=== PATIENT | male | born 1960 | race Hispanic/Latino ===

== ENCOUNTER 2018-11-08 10:11 | Observation (INO) | payer OTHER ==
[2018-11-08 10:13] VITALS: BMI 26.9
[2018-11-08 10:28] LABS: BASO # 0.1 K/uL (0.0-0.2); BASO % 2.1 % (0.0-2.0); EOS # 0.2 K/uL (0.0-0.7); HEMOGLOBIN 14.4 g/dL (12.0-18.0); LYMPH # 1.6 K/uL (1.0-4.3); LYMPH % 26.2 % (20.0-40.0); MEAN CELL VOLUME 94.8 fL (80.0-94.0); MEAN CORPUSCULAR HEMOGLOBIN 32.7 pg (27.0-31.0); MEAN CORPUSCULAR HGB CONC 34.5 g/dL (33.0-37.0); MEAN PLATELET VOLUME 7.9 fL (7.2-11.7); MONO # 0.6 K/uL (0.0-0.8); MONO % 9.7 % (0.0-10.0); NEUT # 3.5 K/uL (1.8-7.0); NRBC % 0.1 % (0.0-2.0); RBC 4.4 Mil/uL (4.40-5.90); RED CELL DISTRIBUTION WIDTH 13.8 % (11.5-14.5)
--- NOTE | 2018-11-08 10:29 | CT ---
Date of service: 11/08/2018 PROCEDURE: CT HEAD WITHOUT CONTRAST. HISTORY: Code Stroke COMPARISON: None available. TECHNIQUE: Axial computed tomography images were obtained through the head/brain without intravenous contrast. Radiation dose: Total exam DLP = 1259.76 mGy-cm. This CT exam was performed using one or more of the following dose reduction techniques: Automated exposure control, adjustment of the mA and/or kV according to patient size, and/or use of iterative reconstruction technique. FINDINGS: HEMORRHAGE: No intracranial hemorrhage. BRAIN: No mass effect or edema. No atrophy or chronic microvascular ischemic changes. VENTRICLES: Unremarkable. No hydrocephalus. CALVARIUM: Unremarkable. PARANASAL SINUSES: Unremarkable as visualized. No significant inflammatory changes. MASTOID AIR CELLS: Unremarkable as visualized. No inflammatory changes. OTHER FINDINGS: None. IMPRESSION: Normal CT of the Head. No intracranial hemorrhage. No evidence of acute infarct.
--- NOTE | 2018-11-08 10:38 | C.PDOC ---
History Of Present Illness 58 y/o M c PMHx thyroid disease p/w slurred speech, facial droop, unsteady gait, slowed speech that began at 9:50am while patient was walking with . This is the last time well. states patient was dragging one side of body and face appears asymmetrical with slurred speech. Upon EMS arrival, facial droop still present mildly. Patient does not know why he is in ED and states he feels well. Time Seen by Provider: 11/08/18 10:22 Chief Complaint (Nursing): Weakness/Neurological Deficit History Per: Patient, EMS History/Exam Limitations: no limitations Onset/Duration Of Symptoms: Mins Current Symptoms Are (Timing): Still Present Recent travel outside of the [place]: No Past Medical History Vital Signs: Last Vital Signs Temp 97.7 F 11/08/18 10:13 Pulse 69 11/08/18 10:13 Resp 20 11/08/18 10:13 BP 119/75 11/08/18 10:13 Pulse Ox 97 11/08/18 10:13 - Medical History PMH: Hypothyroidism Family History: States: No Known Family Hx - Social History Hx Alcohol Use: Yes Hx Substance Use: No - Immunization History Hx Tetanus Toxoid Vaccination: Yes Hx Influenza Vaccination: Yes Hx Pneumococcal Vaccination: No Physical Exam - Physical Exam Additional Physical Exam Comments: gen nad head nc/at eyes perrl ent mmm neck supple chest no tenderness cv reg rate lungs cta b/l abd soft back no cva tenderness skin no rash extremities no tenderness neuro see [facility] ED Course And Treatment - Laboratory Results Result Diagrams: 11/08/18 10:23 11/08/18 10:23 O2 Sat by Pulse Oximetry: 97 (RA) Pulse Ox Interpretation: Normal - CT Scan/US CT Head Other Rad Studies (CT/US): Read By Radiologist CT/US Interpretation: FINDINGS: HEMORRHAGE: No intracranial hemorrhage. BRAIN: No mass effect or edema. No atrophy or chronic microvascular ischemic changes. VENTRICLES: Unremarkable. No hydrocephalus. CALVARIUM: Unremarkable. PARANASAL SINUSES: Unremarkable as visualized. No significant inflammatory changes. MASTOID AIR CELLS: Unremarkable as visualized. No inflammatory changes. OTHER FINDINGS: None. IMPRESSION: Normal CT of the Head. No intracranial hemorrhage. No evidence of acute infarct. CTA Head Other Rad Studies (CT/US): Read By Radiologist CT/US Interpretation: FINDINGS: The right and left common carotid arteries are patent. There are is a small crescentic plaque seen at the level of the p osterior margin of the distal left common carotid artery/carotid bifurcation with no significant stenosis. Tiny calcified plaque seen at the anterior proximal margin of the right internal carotid artery with no significant stenosis. The remaining distal internal carotid arteries widely patent. Minor calcified plaque seen both carotid siphons. Both vertebral arteries are patent throughout. Basilar artery is patent. The visualized major branches of the [id number] are also patent. Distal branches are relatively symmetric. No evidence of large aneurysm nor vascular malformation. OTHER FINDINGS: Minor aortic aortic atherosclerotic calcification or mural plaque present. IMPRESSION: Minor calcified plaque changes seen left carotid bifurcation with no significant hilar stenosis. Tiny plaque seen proximal right internal carotid artery with no significant stenosis. The intracerebral vasculature unremarkable. NIHSS Stroke Scale 2 - Date/Time Evaluation Performed Date Performed: 11/08/18 Time Performed: 10:35 When Was NIHSS Performed: Re-evaluation - How Severe is the Stroke Level of Consciousness: 0=Alert LOC to Questions: 0=Both comments correct LOC to commands: 0=Obeys both correctly Best Gaze: 0=Normal Visual: 0=No visual loss Facial: 0=Normal Motor Arm - Left: 0=No drift Motor Arm - Right: 0=No drift Motor Leg - Left: 0=No drift Motor Leg - Right: 0=No drift Limb Ataxia: 0=Absent Sensory: 0=Normal Best Language: 0=No aphasia Dysarthia: 0=Normal articulation Extinction & Inattention (Neglect): 0=Normal, no object Score: 0 rTPA Inclusion/Exclusion - Refusal of Treatment Patient Refused Treatment: No - Inclusion Criteria for Altepase All of the below criteria for inclusion were reviewed: Yes Patient is 18 years or Older: Yes The Clinical Diagnosis of Ischemic Stroke That is Causing a Potentially Disabling Neurological Deficit: No Time of Onset is Well Established to be Less Than 270 Minute Before Treatment Would Begin: Yes Risk/Benefit Discussed With Patient/Family Member Present: Yes Medical Decision Making Medical Decision Making: Initial plan: -Blood sent. -EKG -CTA HEAD/NECK Code Stroke -CT Head w/o Code Stroke -CXR -Aspirin -Plavix Upon arrival to ED, patient with mild facial droop, slow to respond. CODE STROKE activated and sent to CT. Upon return from CT, symptoms resolved, see NIHSS. Discussed with Dr. Lay who recommends ASA and Plavix and states will come see patient. Dr. Vernon accepts patient to medical service. Disposition - Disposition Disposition: HOSPITALIZED Disposition Time: 10:40 Condition: FAIR - POA Core Measure Indicators: Code Stroke - Clinical Impression Clinical Impression: TIA (transient ischemic attack)
[2018-11-08] MEDS ORDERED: Sodium Chloride 0.9% 1,000 ML IV STA (10:39)
[2018-11-08] MEDS ORDERED: Iodixanol 320 MG/ML 100 ML BOTTLE IV ONE (10:40)
[2018-11-08 10:41] LABS: INR 0.9; PROTHROMBIN TIME 10.2 SECONDS (9.7-12.2)
[2018-11-08 10:42] LABS: ALB/GLOB RATIO 1.5 (1.0-2.1); ALBUMIN 4.2 g/dL (3.5-5.0); BLOOD UREA NITROGEN 20 mg/dL (9-20); CALCIUM 9.2 mg/dl (8.6-10.4); GFR NON-AFRICAN AMERICAN > 60; HDL CHOLESTEROL 89 mg/dL (30-70)
[2018-11-08 10:43] LABS: ALT/SGPT 26 U/L (21-72); AST/SGOT 27 U/L (17-59)
[2018-11-08 10:53] LABS: LDL CHOLESTEROL 115 mg/dL (0-129)
[2018-11-08] MEDS ORDERED: Sodium Chloride 0.9% 1,000 ML ONE (10:53)
--- NOTE | 2018-11-08 11:32 | CT ---
Date of service: 11/08/2018 PROCEDURE: CT Angiography of the neck and brain HISTORY: Code stroke COMPARISON: None. TECHNIQUE: Contiguous axial images of the neck and brain were obtained from the level of the vertex of the skull to the superior mediastinum in the arteriographic phase of enhancement. Coronal and sagittal reformats or also generated. IV contrast dose: 100 cc Visipaque 320 contrast material. Radiation dose: Total exam DLP = 645.5 mGy-cm. This CT exam was performed using one or more of the following dose reduction techniques: Automated exposure control, adjustment of the mA and/or kV according to patient size, and/or use of iterative reconstruction technique. FINDINGS: The right and left common carotid arteries are patent. There are is a small crescentic plaque seen at the level of the posterior margin of the distal left common carotid artery/carotid bifurcation with no significant stenosis. Tiny calcified plaque seen at the anterior proximal margin of the right internal carotid artery with no significant stenosis. The remaining distal internal carotid arteries widely patent. Minor calcified plaque seen both carotid siphons. Both vertebral arteries are patent throughout. Basilar artery is patent. The visualized major branches of the [id number]-[id number] are also patent. Distal branches are relatively symmetric. No evidence of large aneurysm nor vascular malformation OTHER FINDINGS: Minor aortic aortic atherosclerotic calcification or mural plaque present. IMPRESSION: Minor calcified plaque changes seen left carotid bifurcation with no significant hilar stenosis. Tiny plaque seen proximal right internal carotid artery with no significant stenosis. The intracerebral vasculature unremarkable.
[2018-11-08 13:12] VITALS: RESP 20
--- NOTE | 2018-11-08 14:13 | CP.PCM.CON ---
History of Present Illness - History of Present Illness History of Present Illness: Neurology consult called by Dr. BARRY Code stroke called but TPA was not offered because patient's symptoms resolved. Recommend aspirin and stroke workup. NIHSS : 1 ECHO with bubble study, CTA completed, PT ST OT. Start aspirin and plavix. Thank you Dr. Lay Neurology Past Patient History - Past Social History Smoking Status: Former Smoker - ENDOCRINE/METABOLIC Hx Hypothyroidism: Yes - PSYCHIATRIC Hx Substance Use: No - SURGICAL HISTORY Hx Surgeries: Yes Hx Herniorrhaphy: Yes - ANESTHESIA Hx Anesthesia: Yes Hx Anesthesia Reactions: No Hx Malignant Hyperthermia: No Meds Allergies/Adverse Reactions: Allergies Allergy/AdvReac Type Severity Reaction Status Date / Time No Known Allergies Allergy Verified 11/08/18 10:12 - Medications Medications: Current Medications Aspirin (Aspirin) 325 mg PO DAILY SANJIV Clopidogrel Bisulfate (Plavix) 75 mg PO DAILY SANJIV Enoxaparin Sodium (Lovenox) 40 mg SC DAILY SANJIV Famotidine (Pepcid) 20 mg PO BID SANJIV Levothyroxine Sodium (Synthroid) 125 mcg PO DAILY@0630 SANJIV Rosuvastatin Calcium (Crestor) 10 mg PO HS SANJIV Results - Vital Signs Recent Vital Signs: Last Vital Signs Temp 97.4 F L 11/08/18 13:12 Pulse 58 L 11/08/18 13:12 Resp 20 11/08/18 13:12 BP 133/92 H 11/08/18 13:12 Pulse Ox 98 11/08/18 13:45 - Labs Result Diagrams: 11/08/18 10:23 11/08/18 10:23 Labs: Laboratory Results - last 24 hr 11/08/18 11/08/18 11/08/18 10:23 10:23 10:23 WBC 6.0 RBC 4.40 Hgb 14.4 Hct 41.7 MCV 94.8 H MCH 32.7 H MCHC 34.5 RDW 13.8 Plt Count 215 MPV 7.9 Neut % (Auto) 58.0 Lymph % (Auto) 26.2 Sampson % (Auto) 9.7 Eos % (Auto) 4.0 Baso % (Auto) 2.1 H Neut # (Auto) 3.5 Lymph # (Auto) 1.6 Sampson # (Auto) 0.6 Eos # (Auto) 0.2 Baso # (Auto) 0.1 PT 10.2 INR 0.9 APTT 31.0 Sodium 135 Potassium 4.9 Chloride 105 Carbon Dioxide 26 Anion Gap 9 L BUN 20 Creatinine 1.0 Est GFR ( Amer) > 60 Est GFR (Non-Af Amer) > 60 Random Glucose 99 Hemoglobin A1c Calcium 9.2 Total Bilirubin 0.6 AST 27 ALT 26 Alkaline Phosphatase 83 Troponin I < 0.0120 Total Protein 7.1 Albumin 4.2 Globulin 2.8 Albumin/Globulin Ratio 1.5 Triglycerides 38 Cholesterol 215 H LDL Cholesterol Direct 115 HDL Cholesterol 89 H Blood Type Antibody Screen 11/08/18 11/08/18 10:23 10:23 WBC RBC Hgb Hct MCV MCH MCHC RDW Plt Count MPV Neut % (Auto) Lymph % (Auto) Sampson % (Auto) Eos % (Auto) Baso % (Auto) Neut # (Auto) Lymph # (Auto) Sampson # (Auto) Eos # (Auto) Baso # (Auto) PT INR APTT Sodium Potassium Chloride Carbon Dioxide Anion Gap BUN Creatinine Est GFR ( Amer) Est GFR (Non-Af Amer) Random Glucose Hemoglobin A1c 5.5 Calcium Total Bilirubin AST ALT Alkaline Phosphatase Troponin I Total Protein Albumin Globulin Albumin/Globulin Ratio Triglycerides Cholesterol LDL Cholesterol Direct HDL Cholesterol Blood Type B POSITIVE Antibody Screen Negative
--- NOTE | 2018-11-08 16:31 | RAD ---
Date of service: 11/08/2018 HISTORY: Code Stroke COMPARISON: No prior. TECHNIQUE: 1 view obtained. FINDINGS: LUNGS: No active pulmonary disease. PLEURA: No significant pleural effusion identified, no pneumothorax apparent. CARDIOVASCULAR: No aortic atherosclerotic calcification present. Normal cardiac size. No pulmonary vascular congestion. OSSEOUS STRUCTURES: No significant abnormalities. VISUALIZED UPPER ABDOMEN: Normal. OTHER FINDINGS: None. IMPRESSION: No active disease.
[2018-11-08 17:11] VITALS: BP 159/90; PULSE 64; TEMP 98.2; O2SAT 96
--- NOTE | 2018-11-08 18:24 | CP.PCM.HP ---
History of Present Illness - History of Present Illness History of Present Illness: 58-year-old male visiting from [place] not on any medication except history of hypothyroidism on Synthroid 137.5mg vial came out of the restaurant suddenly became dizzy and started swinging around the pulse for 2 to 2-1/2minutes when t he family member was walking with the patient's Patient denies any dizziness denies any chest pain patient appears to have asymmetrical face with the slurred speech although when I examined the patient patient did not have any facial droop family is bedside answered all the questions patient denies smoking patient just here visiting patient is living back to tomorrow morning back to [place] Present on Admission - Present on Admission Any Indicators Present on Admission: No Past Patient History - Past Social History Smoking Status: Former Smoker - ENDOCRINE/METABOLIC Hx Hypothyroidism: Yes - PSYCHIATRIC Hx Substance Use: No - SURGICAL HISTORY Hx Surgeries: Yes Hx Herniorrhaphy: Yes - ANESTHESIA Hx Anesthesia: Yes Hx Anesthesia Reactions: No Hx Malignant Hyperthermia: No Meds Allergies/Adverse Reactions: Allergies Allergy/AdvReac Type Severity Reaction Status Date / Time No Known Allergies Allergy Verified 11/08/18 10:12 Physical Exam - Constitutional Appears: Well - Head Exam Head Exam: ATRAUMATIC, NORMAL INSPECTION, NORMOCEPHALIC - Eye Exam Eye Exam: EOMI, Normal appearance, PERRL Pupil Exam: NORMAL ACCOMODATION, PERRL - ENT Exam ENT Exam: Mucous Membranes Moist - Neck Exam Neck exam: Positive for: Full Rom, Normal Inspection - Respiratory Exam Respiratory Exam: Decreased Breath Sounds - Cardiovascular Exam Cardiovascular Exam: REGULAR RHYTHM, +S1, +S2 - GI/Abdominal Exam GI & Abdominal Exam: Bruit, Distended, Soft - Rectal Exam Rectal Exam: Deferred - Neurological Exam Neurological exam: CN II-XII Intact, Oriented x3, Reflexes Normal Results - Vital Signs Recent Vital Signs: Last Vital Signs Temp 98.2 F 11/08/18 17:09 Pulse 64 11/08/18 17:09 Resp 20 11/08/18 17:09 BP 159/90 H 11/08/18 17:09 Pulse Ox 96 11/08/18 17:09 - Labs Result Diagrams: 11/08/18 10:23 11/08/18 10:23 Labs: Laboratory Results - last 24 hr 11/08/18 11/08/18 11/08/18 10:23 10:23 10:23 WBC 6.0 RBC 4.40 Hgb 14.4 Hct 41.7 MCV 94.8 H MCH 32.7 H MCHC 34.5 RDW 13.8 Plt Count 215 MPV 7.9 Neut % (Auto) 58.0 Lymph % (Auto) 26.2 [place] % (Auto) 9.7 Eos % (Auto) 4.0 Baso % (Auto) 2.1 H Neut # (Auto) 3.5 Lymph # (Auto) 1.6 [place] # (Auto) 0.6 Eos # (Auto) 0.2 Baso # (Auto) 0.1 PT 10.2 INR 0.9 APTT 31.0 Sodium 135 Potassium 4.9 Chloride 105 Carbon Dioxide 26 Anion Gap 9 L BUN 20 Creatinine 1.0 Est GFR ( Amer) > 60 Est GFR (Non-Af Amer) > 60 Random Glucose 99 Hemoglobin A1c Calcium 9.2 Total Bilirubin 0.6 AST 27 ALT 26 Alkaline Phosphatase 83 Total Creatine Kinase CK-MB (Mass) Troponin I < 0.0120 Total Protein 7.1 Albumin 4.2 Globulin 2.8 Albumin/Globulin Ratio 1.5 Triglycerides 38 Cholesterol 215 H LDL Cholesterol Direct 115 HDL Cholesterol 89 H TSH 3rd Generation Blood Type Antibody Screen 11/08/18 11/08/18 11/08/18 10:23 10:23 14:27 WBC RBC Hgb Hct MCV MCH MCHC RDW Plt Count MPV Neut % (Auto) Lymph % (Auto) [place] % (Auto) Eos % (Auto) Baso % (Auto) Neut # (Auto) Lymph # (Auto) [place] # (Auto) Eos # (Auto) Baso # (Auto) PT INR APTT Sodium Potassium Chloride Carbon Dioxide Anion Gap BUN Creatinine Est GFR ( Amer) Est GFR (Non-Af Amer) Random Glucose Hemoglobin A1c 5.5 Calcium Total Bilirubin AST ALT Alkaline Phosphatase Total Creatine Kinase 59 CK-MB (Mass) 0.70 Troponin I < 0.0120 Total Protein Albumin Globulin Albumin/Globulin Ratio Triglycerides Cholesterol LDL Cholesterol Direct HDL Cholesterol TSH 3rd Generation Blood Type B POSITIVE Antibody Screen Negative 11/08/18 16:52 WBC RBC Hgb Hct MCV MCH MCHC RDW Plt Count MPV Neut % (Auto) Lymph % (Auto) [place] % (Auto) Eos % (Auto) Baso % (Auto) Neut # (Auto) Lymph # (Auto) [place] # (Auto) Eos # (Auto) Baso # (Auto) PT INR APTT Sodium Potassium Chloride Carbon Dioxide Anion Gap BUN Creatinine Est GFR ( Amer) Est GFR (Non-Af Amer) Random Glucose Hemoglobin A1c Calcium Total Bilirubin AST ALT Alkaline Phosphatase Total Creatine Kinase CK-MB (Mass) Troponin I Total Protein Albumin Globulin Albumin/Globulin Ratio Triglycerides Cholesterol LDL Cholesterol Direct HDL Cholesterol TSH 3rd Generation 9.07 H Blood Type Antibody Screen Assessment & Plan (1) Hypothyroidism Status: Acute (2) TIA (transient ischemic attack) Status: Acute - Assessment and Plan (Free Text) Plan: no nausea no vomiting No fever No weakness Plan CT head negative Chest x-ray negative Status post placed a call to neurology Aspirin Synthroid Protonix Lovenox Fall precaution Seizure precaution Christer Code stroke activated Plavix Follow-up with the cardio and neurology
[2018-11-08 20:18] LABS: BARBITURATES, UR NEGATIVE (NEGATIVE); BENZODIAZEPINES, UR NEGATIVE (NEGATIVE); OPIATES, UR NEGATIVE (NEGATIVE); PHENCYCLIDINE, UR NEGATIVE (NEGATIVE)
--- NOTE | 2018-11-09 01:50 | CON ---
DATE OF CONSULTATION: 11/08/2018 REASON FOR CONSULTATION: TIA. HISTORY OF PRESENT ILLNESS: The patient is a 58-year-old male who has no prior significant past medical history except for history of migraines. The patient was admitted because of unsteady gait and slurring of speech. The patient was witnessed by his partner, who was with him going to a path train in [place], to have wandered away and go around a signpost in a psychiatric fashion. The patient had slur of speech and was about to fall except when his partner held him from falling. The patient does not recall the event and his first memory came back to him when he was in the ambulance. There was no reported seizure activity, no reported incontinence, no prior similar episodes of migraine in the past, had no similar presentation. The only thing that he experienced with this migraine is seeing at times flashes of light and intense noise in his ears. The patient denies sleepwalking. SOCIAL HISTORY: The patient is a nonsmoker. 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 The patient is an active runner and cyclist. He runs 7 miles nonstop in a time ranging from 1 hour to 1 hour and 20 minutes. MEDICATIONS: Currently, the patient is on aspirin 325 mg once a day, Crestor 10 mg once a day, Lovenox 20 mg subcutaneously daily, Pepcid 20 mg p.o. twice a day, Plavix 75 mg once a day, and Synthroid 125 mcg daily. PHYSICAL EXAMINATION: GENERAL: The patient is a middle-aged male who does not appear to be in any distress. VITAL SIGNS: Blood pressure 133/92, heart rate 68, temperature 97.4, and respirations 20. HEENT: Normocephalic. CHEST: Clear. HEART: S1 and S2, regular. ABDOMEN: Soft. EXTREMITIES: No edema. LABORATORY DATA: Today's hemoglobin and hematocrit 14.4 and 41.7, white count 6.3, and platelet count 115,000. PT/PTT and INR are within normal limits. SMA-7: Sodium 135, potassium 4.9, chloride 105, CO2 of 26, glucose 99, BUN 20, and creatinine 1. Total cholesterol is elevated at 215, LDL cholesterol 115, HDL cholesterol is 89. One set of troponin is negative. EKG revealed normal sinus rhythm. Head CT scan without contrast, normal study. CT angio of the head and neck, minor calcified plaque changes seen in the left carotid bifurcation with no significant hilar stenosis. Tiny plaque seen in proximal right internal carotid artery with no significant stenosis. Chest x-ray was reviewed and is unremarkable. ASSESSMENT: 1. Rule out transient ischemic attack. 2. Rule out temporal lobe epilepsy. 3. Hypertension. 4. Hypercholesterolemia. 5. Hypothyroidism. The patient was on Synthroid therapy at home. RECOMMENDATIONS: Continue current aspirin 325 mg once a day, Crestor 10 mg once a day, subcutaneous Lovenox 40 mg once a day, Plavix 75 mg daily, and Synthroid 125 mcg once a day. Obtain an echocardiographic study. The patient was already evaluated by Dr. Lay, the neurologist, and an echo with bubble study has been ordered. Obtain in the meantime. Ramone Arita MD
[2018-11-09] MEDS ORDERED: Levothyroxine 125 MCG TAB PO SCH (06:30)
[2018-11-09] MEDS ORDERED: Enoxaparin 40 mg Syringe SC SCH (10:00)
[2018-11-09] MEDS ORDERED: Pantoprazole 40 mg EC Tab PO SCH (10:00)
[2018-11-09] MEDS ORDERED: Aspirin 325 mg EC Tablets PO SCH (10:00)
--- NOTE | 2018-11-09 13:30 | MRI ---
Date of service: 11/08/2018 PROCEDURE: MRI BRAIN WITHOUT CONTRAST HISTORY: Stroke COMPARISON: Comparison made with prior CT scan brain 11/08/2018. TECHNIQUE: Multiplanar, multisequence MR images of the brain were obtained without intravenous contrast enhancement. FINDINGS: This study is limited by motion artifact HEMORRHAGE: No acute parenchymal, subarachnoid or extra-axial hemorrhage. No evidence of hemosiderin deposition identified on gradient echo weighted sequence. DWI: No evidence of an acute or early subacute infarction seen on diffusion imaging. BRAIN PARENCHYMA: There are a few tiny focal areas of increased T2 signal seen scattered about the subcortical white matter both cerebral hemispheres nonspecific. Findings may represent chronic sequela of small vessel disease. Mild age-appropriate volume loss VENTRICLES: No obstructive hydrocephalus. CRANIUM: Unremarkable. ORBITS: Orbits and contents unremarkable. PARANASAL SINUSES/MASTOIDS: Clear VASCULAR SYSTEM: Visualized major vascular flow voids at skull base patent. OTHER FINDINGS: None. IMPRESSION: Limited motion degraded study. No evidence of acute intracranial hemorrhage. There are a few tiny focal areas of increased T2 signal seen scattered about the subcortical white matter both cerebral hemispheres nonspecific.
== END 2018-11-08 18:35 | disposition left against medical advice (07) ==
LOC: C.ER 10:11 → C.9E 11:58 → C.6T 12:16
PROVIDERS: ADMIT Internal Medicine Nephrology; ATTEND Internal Medicine Nephrology
DX: G45.9 Transient cerebral ischemic attack, unspecified (principal); G43.909 Migraine, unspecified, not intractable, without status migrainosus; R29.701 NIHSS score 1; R29.810 Facial weakness; I10 Essential (primary) hypertension; E03.9 Hypothyroidism, unspecified; E78.00 Pure hypercholesterolemia, unspecified; Z87.891 Personal history of nicotine dependence
CPT/HCPCS: 70450; 70496; 70498; 70551; 71045; 80053; 80061; 80324; 80345; 80346; 80349; 80353; 80358; 80361; 83036; 83992; 84443; 84484; 85025; 85610; 85730; 86850; 86900; 96360; 99285; G0378; J7030; Q9967